=== PATIENT | female | born 1955 | race Caucasian/White ===

== ENCOUNTER → 2023-10-21 07:22 | Outpatient (REF) | payer BC, SELFPAY | LOC: DHCBS MAIN 07:22 | PROVIDERS: ATTENDING PHYSICIAN Internal Medicine Cardiovascular Disease; FAMILY PHYSICIAN Family Medicine | DX: R94.31 Abnormal electrocardiogram [ECG] [EKG] (principal); I49.3 Ventricular premature depolarization; R53.83 Other fatigue | CPT/HCPCS: 93306 ==

== ENCOUNTER → 2023-11-13 07:34 | Outpatient (REF) | payer BC, MEDICARE, SELFPAY | LOC: RCS 07:34 | PROVIDERS: ATTENDING PHYSICIAN Internal Medicine Cardiovascular Disease; FAMILY PHYSICIAN Family Medicine | DX: R94.31 Abnormal electrocardiogram [ECG] [EKG] (principal); I49.3 Ventricular premature depolarization | CPT/HCPCS: 93017; 75571 ==

== ENCOUNTER → 2023-11-22 06:23 | Outpatient (REF) | payer BC, SELFPAY | LOC: MRI 06:23 | PROVIDERS: ATTENDING PHYSICIAN Orthopaedic Surgery Sports Medicine; FAMILY PHYSICIAN Family Medicine | DX: M25.561 Pain in right knee (principal) | CPT/HCPCS: 73721 ==

== ENCOUNTER → 2023-11-27 06:35 | Day surgery (SDC) | payer BC, SELFPAY | LOC: GI 06:35 | PROVIDERS: ATTENDING PHYSICIAN Specialist; FAMILY PHYSICIAN Family Medicine | DX: K29.50 Unspecified chronic gastritis without bleeding (principal); K31.89 Other diseases of stomach and duodenum; R10.13 Epigastric pain; R14.0 Abdominal distension (gaseous) | CPT/HCPCS: 43239; 88305; 88342 ==

== ENCOUNTER → 2023-11-28 08:19 | Outpatient (REF) | payer BC, MEDICARE, SELFPAY | LOC: HWRAD 08:19 | PROVIDERS: ATTENDING PHYSICIAN Specialist; FAMILY PHYSICIAN Family Medicine | DX: R79.89 Other specified abnormal findings of blood chemistry (principal) | CPT/HCPCS: 76700 ==

== ENCOUNTER → 2024-01-05 18:05 | Outpatient (REF) | payer BC, MEDICARE, SELFPAY | LOC: MRI 3T 18:05 | PROVIDERS: ATTENDING PHYSICIAN Specialist; FAMILY PHYSICIAN Family Medicine | DX: R93.89 Abnormal findings on diagnostic imaging of other specified body structures (principal) | CPT/HCPCS: 74183; A9575 ==

== ENCOUNTER → 2024-01-14 12:44 | Outpatient (REF) | payer BC, MEDICARE, SELFPAY | LOC: WDC 12:44 | PROVIDERS: ATTENDING PHYSICIAN Obstetrics & Gynecology; FAMILY PHYSICIAN Family Medicine | DX: Z12.31 Encounter for screening mammogram for malignant neoplasm of breast (principal) | CPT/HCPCS: 77063; 77067 ==

== ENCOUNTER → 2024-08-13 10:12 | Outpatient (REF) | payer BC, MEDICARE, SELFPAY | LOC: PAVMRI 10:12 | PROVIDERS: ATTENDING PHYSICIAN Family Medicine | DX: M51.362 Other intervertebral disc degeneration, lumbar region with discogenic back pain and lower extremity pain (principal) | CPT/HCPCS: 72148 ==

== ENCOUNTER → 2024-10-26 09:32 | Outpatient (REF) | payer BC, MEDICARE, SELFPAY | LOC: EMG 09:32 | PROVIDERS: ATTENDING PHYSICIAN Family Medicine | DX: R20.2 Paresthesia of skin (principal) | CPT/HCPCS: 95886; 95909 ==

== ENCOUNTER → 2025-01-19 10:57 | Outpatient (REF) | payer BC, MEDICARE, SELFPAY | LOC: WDC 10:57 | PROVIDERS: ATTENDING PHYSICIAN Obstetrics & Gynecology; FAMILY PHYSICIAN Family Medicine | DX: Z12.31 Encounter for screening mammogram for malignant neoplasm of breast (principal) | CPT/HCPCS: 77063; 77067 ==